=== PATIENT | female | born 1975 | race Caucasian/White ===

== ENCOUNTER 2016-10-02 07:27 | Inpatient (IN) | payer MEDICAID ==
[2016-10-02] MEDS ORDERED: Ondansetron 4 MG/2 ML SDV IVPUSH ONE ×3 (08:11→10:04)
[2016-10-02] MEDS ORDERED: Famotidine 20 MG/2 ML SDV IVPUSH ONE (08:13)
[2016-10-02] MEDS ORDERED: Sodium Chloride 0.9% 1,000 ML IV SCH (08:15)
--- NOTE | 2016-10-02 08:30 | EDM.PDOC ---
ED HPI GI/ABDOMINAL - General Chief Complaint: Gastrointestinal Problem Stated Complaint: VOMITING/DIARRHEA Time Seen by Provider: 10/02/16 07:40 Source of Information: Reports: Patient, Family (spouse) - History of Present Illness INITIAL COMMENTS - FREE TEXT/NARRATIVE: 41 year old female comes in with severe nausea, vomiting, diarrhea. Has had previous nausea off and on, occasional diarrhea. This all became much worse yesterday with severe nausea, repetitive vomiting and watery diarrhea. Has not been able to drink or retain fluids. Mouth is getting very dry. Dizzy and lightheaded standing. 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 about 6 months ago. Last chemo was just 2 days ago. Had been having some intermitent fever and chills, started on flagyl and cipro 2 days ago. states it was after that the severe vomiting and diarrhea started. No fever for the last 24 hrs. No coughing, chest pain or difficulty breathing. - Related Data Allergies/ADRs: Allergies Allergy/AdvReac Type Severity Reaction Status Date / Time paclitaxel Allergy Anaphylactic Verified 10/02/16 07:43 Shock Home Meds: Home Meds ALPRAZolam [Alprazolam] 0.5 mg PO Q4HR PRN 08/22/16 [History] Ferrous Sulfate [Iron] 1 tab PO DAILY 08/22/16 [History] Gabapentin [Neurontin] 300 mg PO TID 08/22/16 [History] Ibuprofen 400 mg PO Q6HR PRN 08/22/16 [History] Ibuprofen/Diphenhydramine Cit [Advil Pm Caplet] 1 tab PO DAILY PRN 08/22/16 [ History] Morphine [MS Contin] 1 tab PO Q12HR 08/22/16 [History] Naproxen Sodium [Aleve] 1 tab PO Q12HR PRN 08/22/16 [History] Ondansetron HCl [Zofran] 8 mg PO Q6HR PRN 08/22/16 [History] Promethazine [Phenergan] 0.5 mg TOP Q6HR PRN 08/22/16 [History] diphenhydrAMINE [Benadryl] 25 mg PO Q6HR PRN 08/22/16 [History] Ciprofloxacin HCl [Cipro] 250 mg PO BID 10/02/16 [History] HYDROmorphone [Dilaudid] 4 mg PO Q3H PRN MDD 8 tabs/day 10/02/16 [History] metroNIDAZOLE [Flagyl] 500 mg PO Q8H 10/02/16 [History] Past Medical History Respiratory History: Reports: Other (see below) Other Respiratory History: bronchoscopy [employer] History: Reports: Neurological History: Reports: Migraines Psychiatric History: Reports: Anxiety Hematologic History: Reports: Anemia, Other (see below) Other Hematologic History: chemotherapy patient Immunologic History: Reports: Immunosuppression, Other (see below) Other Immunologic History: chemo patient Oncologic (Cancer) History: Reports: Squamous cell carcinoma - Past Surgical History GI Surgical History: Reports: Other (see below) Other GI Surgeries/Procedures: colonoscopy Oncologic Surgical History: Reports: Other (see below) Other Oncologic Surgeries/Procedures: biopsy, currently being treated with chemo , no radiation Social & Family History - Family History Family Medical History: Noncontributory - Tobacco Use Smoking Status *Q: Former Smoker - Caffeine Use Caffeine Use: Reports: None - Recreational Drug Use Recreational Drug Use: No ED ROS GENERAL - Review of Systems Review Of Systems: See Below Constitutional: Reports: fever (several days ago, gone) HEENT: Reports: Other (mouth is very dry). Denies: Sinus problem, Throat pain Respiratory: Denies: shortness of breath, wheezing, pleuritic chest pain Cardiovascular: Denies: Chest pain GI/Abdominal: Reports: Abdominal pain (intermitent cramping), Diarrhea ( frequent watery), Vomiting (frequent repetitive, now mostly dry heaves) Musculoskeletal: Reports: back pain (low back, worse with any type of motion) Skin: Denies: rash Neurological: Reports: dizziness, numbness, tingling (R foot and distal leg), weakness (generalized). Denies: headache ED EXAM, GI/ABD - Physical Exam Exam: See Below Exam Limited By: No limitations General Appearance: alert, moderate distress Eyes: bilateral: normal appearance Throat/Mouth: Other (oral mucosa is dry). No: Inflammation Head: No: facial swelling Neck: normal inspection, supple Respiratory/Chest: no respiratory distress, lungs clear, normal breath sounds Cardiovascular: regular rate, rhythm GI/Abdominal: tenderness (mid and upper mid abdomen, right lower quadrant). No : guarding Back Exam: CVA tenderness (R) (mild). No: CVA tenderness (L) Extremities: No: pedal edema, leg pain Neurological: alert, oriented, no motor/sensory deficits Skin Exam: Warm, Dry, Normal color Course - Vital Signs Last Recorded V/S: Last Vital Signs Temp 98.3 F 10/02/16 10:00 Pulse 64 10/02/16 10:00 Resp 18 10/02/16 10:00 BP 124/85 10/02/16 10:00 Pulse Ox 98 10/02/16 10:00 - Orders/Labs/Meds Orders: Active Orders 24 hr Category Date Time Status Admission Status [Patient Status] [ADT] Routine ADT 10/02/16 12:15 Active CULTURE STOOL + SHIGATOX [RM] Stat Lab 10/02/16 08:46 Ordered Potassium Chloride [KCl 10 MEQ in Water 100 ML] 10 meq Med 10/02/16 11:04 Active Premix Bag 1 bag IV ASDIRECTED Sodium Chloride 0.9% [Normal Saline] 1,000 ml Med 10/02/16 08:15 Active IV ONETIME Medication Orders Sodium Chloride (Normal Saline) 1,000 mls @ 999 mls/hr IV ONETIME DOLORES Last Admin: 10/02/16 08:25 Dose: 999 mls/hr Potassium Chloride 10 meq/ (Premix) 100 mls @ 50 mls/hr IV ASDIRECTED ONE Stop: 10/02/16 13:03 Last Admin: 10/02/16 11:10 Dose: 50 mls/hr Labs: Laboratory Tests 10/02/16 10/02/16 10/02/16 Range/Units 08:11 08:15 08:30 WBC 5.99 (3.98-10.04) K/mm3 RBC 3.13 L (3.98-5.22) M/mm3 Hgb 10.1 L (11.2-15.7) gm/L Hct 30.1 L (34.1-44.9) % MCV 96.2 H (79.4-94.8) fl MCH 32.3 H (25.6-32.2) pg MCHC 33.6 (32.2-35.5) g/dl RDW Std Deviation 58.3 H (36.4-46.3) fL Plt Count 319 (182-369) K/mm3 MPV 8.2 L (9.4-12.3) fl Neut % (Auto) 90.7 H (34.0-71.1) % Lymph % (Auto) 4.3 L (19.3-51.7) % Lipscomb % (Auto) 4.5 L (4.7-12.5) % Eos % (Auto) 0.3 L (0.7-5.8) Baso % (Auto) 0.2 (0.1-1.2) % Neut # 5.43 (1.56-6.13) K/mm3 Lymph # 0.26 L (1.18-3.74) K/mm3 Lipscomb # 0.27 (0.24-0.36) K/mm3 Eos # 0.02 L (0.04-0.36) K/mm3 Baso # 0.01 (0.01-0.08) K/mm3 Manual Slide Review Abnormal smear Sodium 141 (136-145) mEq/L Potassium 3.1 L (3.5-5.1) mEq/L Chloride 105 (98-107) mEq/L Carbon Dioxide 26 (21-32) mEq/L Anion Gap 13.1 (5-15) BUN 14 (7-18) mg/dL Creatinine 0.8 (0.55-1.02) mg/dL Est Cr Clr Drug Dosing TNP Estimated GFR (MDRD) > 60 (>60) mL/min BUN/Creatinine Ratio 17.5 (14-18) Glucose 96 (74-106) mg/dL Lactic Acid 1.4 (0.4-2.0) mmol/L Calcium 9.1 (8.5-10.1) mg/dL Total Bilirubin 0.3 (0.2-1.0) mg/dL AST 52 H (15-37) U/L ALT 29 (14-59) U/L Alkaline Phosphatase 50 (46-116) U/L Total Protein 6.7 (6.4-8.2) g/dl Albumin 3.3 L (3.4-5.0) g/dl Globulin 3.4 gm/dL Albumin/Globulin Ratio 1.0 (1-2) C.difficile [id number]-[id number] C. difficile Tox (PCR) 10/02/16 Range/Units 08:30 WBC (3.98-10.04) K/mm3 RBC (3.98-5.22) M/mm3 Hgb (11.2-15.7) gm/L Hct (34.1-44.9) % MCV (79.4-94.8) fl MCH (25.6-32.2) pg MCHC (32.2-35.5) g/dl RDW Std Deviation (36.4-46.3) fL Plt Count (182-369) K/mm3 MPV (9.4-12.3) fl Neut % (Auto) (34.0-71.1) % Lymph % (Auto) (19.3-51.7) % Lipscomb % (Auto) (4.7-12.5) % Eos % (Auto) (0.7-5.8) Baso % (Auto) (0.1-1.2) % Neut # (1.56-6.13) K/mm3 Lymph # (1.18-3.74) K/mm3 Lipscomb # (0.24-0.36) K/mm3 Eos # (0.04-0.36) K/mm3 Baso # (0.01-0.08) K/mm3 Manual Slide Review Sodium (136-145) mEq/L Potassium (3.5-5.1) mEq/L Chloride (98-107) mEq/L Carbon Dioxide (21-32) mEq/L Anion Gap (5-15) BUN (7-18) mg/dL Creatinine (0.55-1.02) mg/dL Est Cr Clr Drug Dosing Estimated GFR (MDRD) (>60) mL/min BUN/Creatinine Ratio (14-18) Glucose (74-106) mg/dL Lactic Acid (0.4-2.0) mmol/L Calcium (8.5-10.1) mg/dL Total Bilirubin (0.2-1.0) mg/dL AST (15-37) U/L ALT (14-59) U/L Alkaline Phosphatase (46-116) U/L Total Protein (6.4-8.2) g/dl Albumin (3.4-5.0) g/dl Globulin gm/dL Albumin/Globulin Ratio (1-2) C.difficile [id number] Presumptive negative C. difficile Tox (PCR) Negative Meds: Medications Generic Name Dose Route Start Last Admin Trade Name Freq PRN Reason Stop Dose Admin Sodium Chloride 1,000 mls @ 999 mls/hr 10/02/16 08:15 10/02/16 08:25 Normal Saline IV 999 mls/hr ONETIME DOLORES Administration Potassium Chloride 10 meq/ 100 mls @ 50 mls/hr 10/02/16 11:04 10/02/16 11:10 Premix IV 10/02/16 13:03 50 mls/hr ASDIRECTED ONE Administration Discontinued Medications Generic Name Dose Route Start Last Admin Trade Name Robel PRN Reason Stop Dose Admin Famotidine 20 mg 10/02/16 08:13 10/02/16 08:25 Pepcid IVPUSH 10/02/16 08:14 20 mg ONETIME ONE Administration Hydromorphone HCl 1 mg 10/02/16 09:08 10/02/16 09:18 Dilaudid IVPUSH 10/02/16 09:09 1 mg ONETIME ONE Administration Potassium Chloride 10 meq/ 100 mls @ 50 mls/hr 10/02/16 09:22 10/02/16 09:32 Premix IV 10/02/16 11:21 50 mls/hr ASDIRECTED ONE Administration Sodium Chloride 1,000 mls @ 500 mls/hr 10/02/16 10:01 10/02/16 10:10 Normal Saline IV 10/02/16 12:00 500 mls/hr ONETIME ONE Administration Metoclopramide HCl 5 mg 10/02/16 09:54 10/02/16 10:11 Reglan IVPUSH 10/02/16 09:55 Not Given ONETIME ONE Ondansetron HCl 4 mg 10/02/16 08:11 10/02/16 08:25 Zofran IVPUSH 10/02/16 08:12 4 mg ONETIME ONE Administration Ondansetron HCl 4 mg 10/02/16 10:04 10/02/16 10:10 Zofran IVPUSH 10/02/16 10:05 4 mg ONETIME ONE Administration Ondansetron HCl 4 mg 10/02/16 10:04 10/02/16 10:10 Zofran IVPUSH 10/02/16 10:05 Not Given ONETIME ONE - Re-Assessments/Exams Free Text/Narrative Re-Assessment/Exam: 10/02/16 10: 40. Have given 1 L of IV fluid, IV Zofran, IV Pepcid. She still is quite nauseated. We did recently do a dose of 1 mg Dilaudid IV to help her with her low back discomfort. Note she has not been able to take her pain meds today. He became more nauseated after that. Zofran will be repeated. Potassium has come back low at 3.1 so will give 10 mEq potassium IV. We'll plan to give a second liter of fluid over the next couple of hours. 12:00. She's had most of the second liter of IV fluid. She has had a second 4 mg IV Zofran. She still feels very nauseated, had another episode of vomiting. Is very tearful, does not feel well enough to go home. I have visited with her Oncologist Dr. Henderson who does agree to stopping oral Flagyl and Cipro. Of note her white blood count is not elevated and she is not febrile. We will admit her observation status for further treatment. Departure - Departure Time of Disposition: 12:05 Disposition: Admitted As Inpatient 65 Condition: serious Clinical Impression: Hypokalemia, Chemotherapy induced nausea and vomiting Back pain Qualifiers: Back pain location: low back pain Chronicity: acute Back pain laterality: midline Sciatica presence: without sciatica Qualified Code(s): M54.5 - Low back pain Forms: ED Department Discharge ED Communication - Discussed Case With (1) Discussed Case With (1): Admitting Provider (Dr. Fuentes, decision to admit at about 12:05) - My Orders Last 24 Hours: My Active Orders 10/02/16 08:15 Sodium Chloride 0.9% [Normal Saline] 1,000 ml IV ONETIME 10/02/16 08:46 CULTURE STOOL + SHIGATOX [RM] Stat 10/02/16 11:04 Potassium Chloride [KCl 10 MEQ in Water 100 ML] 10 meq Premix Bag 1 bag IV ASDIRECTED 10/02/16 12:15 Admission Status [Patient Status] [ADT] Routine - Assessment/Plan Last 24 Hours: My Active Orders 10/02/16 08:15 Sodium Chloride 0.9% [Normal Saline] 1,000 ml IV ONETIME 10/02/16 08:46 CULTURE STOOL + SHIGATOX [RM] Stat 10/02/16 11:04 Potassium Chloride [KCl 10 MEQ in Water 100 ML] 10 meq Premix Bag 1 bag IV ASDIRECTED 10/02/16 12:15 Admission Status [Patient Status] [ADT] Routine
[2016-10-02] MEDS ORDERED: HYDROmorphone 1 MG/ML Syringe IVPUSH ONE (09:08)
[2016-10-02] MEDS ORDERED: Potassium Chloride 10 MEQ in Premix Bag 1 BAG IV ONE ×2 (09:22→11:04)
[2016-10-02] MEDS ORDERED: Metoclopramide 10 MG/2 ML SDV IVPUSH ONE (09:54)
[2016-10-02] MEDS ORDERED: Sodium Chloride 0.9% 1,000 ML IV ONE (10:01)
[2016-10-02] MEDS ORDERED: Prochlorperazine 10 MG/2 ML SDV IVPUSH PRN (14:10)
[2016-10-02] MEDS ORDERED: HYDROmorphone 1 MG/ML Syringe IVPUSH PRN (14:11)
[2016-10-02] MEDS ORDERED: fentaNYL 25 MCG/HR Transdermal Patch TRDERM SCH (14:15)
[2016-10-02] MEDS ORDERED: Ondansetron 4 MG/2 ML SDV IV PRN (14:20)
[2016-10-02] MEDS ORDERED: Acetaminophen Soln 650 MG/20.3 ML UD Cup PO PRN (14:21)
[2016-10-02] MEDS ORDERED: Magnesium Sulfate/Water 2 GM in Premix Bag 1 BAG IV ONE (14:21)
[2016-10-02] MEDS ORDERED: Temazepam 15 MG Cap PO PRN (14:31)
[2016-10-02] MEDS: Pantoprazole 40 MG Vial IVPUSH SCH (15:14)
[2016-10-02] MEDS: Gabapentin 300 MG Cap PO SCH ×2 (15:14→20:49)
[2016-10-02] MEDS: Sodium Chloride 0.9% with KCl 1,000 ML IV SCH ×2 (15:27→19:30)
--- NOTE | 2016-10-02 15:43 | CR ---
Chest: Portable view of the chest was obtained. Comparison: No previous chest x-ray. Right-sided infusion port is seen. Tip lies within the superior vena cava. Lungs are clear. Heart size and mediastinum are normal. Bony structures are grossly intact. Impression: 1. Right-sided infusion catheter as noted above. 2. Nothing acute is appreciated on portable chest x-ray. Diagnostic code #2
--- NOTE | 2016-10-02 18:07 | PCM.HP ---
H&P History of Present Illness - General Date of Service: 10/02/16 Admit Problem/Dx: Admission Diagnosis/Problem Admission Diagnosis/Problem Vomiting Source of Information: Patient, Provider History Limitations: Reports: No limitations - History of Present Illness Initial Comments - Free Text/Narative: 41 year old female s/p CTX for squamous cell carcinoma, primary is unknown at this time. Sees an oncologist in [place], has not been seen by a PATHOLOGY SECRETARY/TRANSCRIPTIONIST oncologist. Apparently has several days of a possible febrile illness and was empirically started on Flagyl as well as Cirpro. The patient subsequently developed nausea/vomiting and has had watery stools with abdominal cramping. The possibility of sick contacts is unknown. There has been no blood per rectum ; however significant lightheadedness has occurred. Onset of Symptoms: Reports: sudden Symptom Onset Date: 09/30/16 Duration of Symptoms: Reports: Day(s):, Getting worse Location: Reports: abdomen Severity: moderate Improves with: Reports: None Worsens with: Reports: None Associated Symptoms: Reports: loss of appetite, malaise, nausea/vomiting, weakness stomach, bilateral side Pain Score (Numeric/FACES): 8 - Related Data Allergies/Adverse Reactions: Allergies Allergy/AdvReac Type Severity Reaction Status Date / Time paclitaxel Allergy Anaphylactic Verified 10/02/16 07:43 Shock Home Medications: Home Meds ALPRAZolam [Alprazolam] 0.5 mg PO Q4HR PRN 08/22/16 [History] Ferrous Sulfate [Iron] 1 tab PO DAILY 08/22/16 [History] Gabapentin [Neurontin] 300 mg PO TID 08/22/16 [History] Ibuprofen 400 mg PO Q6HR PRN 08/22/16 [History] Ibuprofen/Diphenhydramine Cit [Advil Pm Caplet] 1 tab PO DAILY PRN 08/22/16 [ History] Morphine [MS Contin] 1 tab PO Q12HR 08/22/16 [History] Naproxen Sodium [Aleve] 1 tab PO Q12HR PRN 08/22/16 [History] Ondansetron HCl [Zofran] 8 mg PO Q6HR PRN 08/22/16 [History] Promethazine [Phenergan] 0.5 mg TOP Q6HR PRN 08/22/16 [History] diphenhydrAMINE [Benadryl] 25 mg PO Q6HR PRN 08/22/16 [History] Ciprofloxacin HCl [Cipro] 250 mg PO BID 10/02/16 [History] HYDROmorphone [Dilaudid] 4 mg PO Q3H PRN MDD 8 tabs/day 10/02/16 [History] metroNIDAZOLE [Flagyl] 500 mg PO Q8H 10/02/16 [History] Past Medical History HEENT History: Reports: Impaired vision Respiratory History: Reports: Other (see below) Other Respiratory History: bronchoscopy [employer] History: Reports: Neurological History: Reports: Migraines Psychiatric History: Reports: Anxiety Hematologic History: Reports: Anemia, Other (see below) Other Hematologic History: chemotherapy patient Immunologic History: Reports: Immunosuppression, Other (see below) Other Immunologic History: chemo patient Oncologic (Cancer) History: Reports: Squamous cell carcinoma - Infectious Disease History Infectious Disease History: Reports: C-difficile - Past Surgical History GI Surgical History: Reports: Other (see below) Other GI Surgeries/Procedures: colonoscopy Oncologic Surgical History: Reports: Other (see below) Other Oncologic Surgeries/Procedures: biopsy, currently being treated with chemo , no radiation Social & Family History - Family History Family Medical History: Noncontributory Cardiac: Reports: VT Other Cardiac Family History: mother of [place] Endocrine/Metabolic: Reports: Diabetes, type II Other Endocrine/Metabolic Family History: mother and father Oncologic: Reports: Skin Other Oncologic Family History: father - Tobacco Use Smoking Status *Q: Former Smoker - Caffeine Use Caffeine Use: Reports: Tea - Recreational Drug Use Recreational Drug Use: No H&P Review of Systems - Review of Systems: Review Of Systems: See Below General: Reports: malaise, weakness, fatigue, decreased appetite, weight loss HEENT: Reports: no symptoms Pulmonary: Reports: no symptoms Cardiovascular: Reports: lightheadedness Gastrointestinal: Reports: Diarrhea (watery stool), Decreased appetite Genitourinary: Reports: no symptoms Musculoskeletal: Reports: no symptoms Skin: Reports: no symptoms Psychiatric: Reports: no symptoms Neurological: Reports: no symptoms Hematologic/Lymphatic: Reports: no symptoms Immunologic: Reports: no symptoms Exam - Exam Exam: See Below - Vital Signs Vital Signs: Last Vital Signs Temp 36.9 C 10/02/16 17:15 Pulse 60 10/02/16 17:15 Resp 18 10/02/16 17:15 BP 133/83 10/02/16 17:15 Pulse Ox 100 10/02/16 17:15 Weight: 56.2 kg - Exam Quality Assessment: DVT prophylaxis General: alert, oriented, mild distress HEENT: Conjunctiva clear, EACs clear, EOMI, Nares patent, Normal nasal septum, Posterior pharynx clear, Pupils equal, Pupils reactive Neck: supple, trachea midline Lungs: Normal respiratory effort, Decreased breath sounds Cardiovascular: regular rate, regular rhythm Abdomen: normal bowel sounds, soft (Female) Exam: Deferred Rectal (Female) Exam: Deferred Back Exam: normal inspection Extremities: normal inspection, normal pulses Skin: warm Neurological: cranial nerves intact Neuro Extensive - Mental Status: alert, oriented x3, normal mood/affect, normal cognition, memory intact Neuro Extensive - Motor, Sensory, Reflexes: CN II-XII intact Psychiatric: alert, normal affect, normal mood - Patient Data Result Diagrams: 10/03/16 05:03 10/03/16 05:00 Obey Results last 24 hrs: Microbiology 10/02/16 17:00 Influenza Type A Antigen Screen - Final Nasal, Left NEGATIVE INFLUENZA A VIRUS AG Influenza Type B Antigen Screen - Final NEGATIVE INFLUENZA B VIRUS AG *Q Meaningful Use (ADM) - VTE *Q VTE Criteria *Q: - Stroke *Q Stroke Criteria *Q: - AMI *Q AMI Criteria *Q: - Problem List (1) Back pain SNOMED Code(s): 636388859 ICD Code: M54.9 - DORSALGIA, UNSPECIFIED Status: Acute Current Visit: Yes Qualifiers: Back pain location: low back pain Chronicity: acute Back pain laterality : midline Sciatica presence: without sciatica Qualified Code(s): M54.5 - Low back pain (2) Chemotherapy induced nausea and vomiting SNOMED Code(s): 513525021 ICD Code: R11.2 - NAUSEA WITH VOMITING, UNSPECIFIED; T45.1X5A - ADVERSE EFFECT OF ANTINEOPLASTIC AND IMMUNOSUP DRUGS, INIT Status: Acute Current Visit: Yes (3) Hypokalemia SNOMED Code(s): 99061925 ICD Code: E87.6 - HYPOKALEMIA Status: Acute Current Visit: Yes (4) Abdominal pain SNOMED Code(s): 97984103 ICD Code: R10.9 - UNSPECIFIED ABDOMINAL PAIN Status: Acute Current Visit : No Qualifiers: Abdominal location: right lower quadrant Qualified Code(s): R10.31 - Right lower quadrant pain (5) Lesion of liver SNOMED Code(s): 385013190 ICD Code: K76.9 - LIVER DISEASE, UNSPECIFIED Status: Acute Current Visit : No (6) Squamous cell carcinoma SNOMED Code(s): 735875637 ICD Code: C80.1 - MALIGNANT (PRIMARY) NEOPLASM, UNSPECIFIED Status: Acute Current Visit: No Problem List Initiated/Reviewed/Updated: Yes Orders Last 24hrs: Active Orders 24 hr Category Date Time Status Activity as Tolerated [RC] .Routine Care 10/02/16 18:01 Ordered Antiembolic Devices [RC] QSHIFT Care 10/02/16 14:25 Active Vital Signs [RC] 12,16,20,00,04,08 Care 10/02/16 14:09 Active Consult to Case Management [CONS] Routine Cons 10/02/16 15:23 Active Nothing per Oral Now Diet [DIET] Diet 10/02/16 Dinner Active BASIC METABOLIC PANEL,BMP [CHEM] DAILY Lab 10/03/16 05:00 Ordered BASIC METABOLIC PANEL,BMP [CHEM] DAILY Lab 10/04/16 05:00 Ordered CBC WITH AUTO DIFF [HEME] DAILY Lab 10/03/16 05:00 Ordered CBC WITH AUTO DIFF [HEME] DAILY Lab 10/04/16 05:00 Ordered CRP [C-REACTIVE PROTEIN] [CHEM] Routine Lab 10/02/16 18:00 Ordered D Dimer [D-DIMER QUANTITATIVE] [COAG] Routine Lab 10/02/16 18:00 Ordered HCG QUALITATIVE,URINE [URCHEM] Routine Lab 10/02/16 14:28 Uncollected INFLUENZA A+B AG SCREEN [RM] Routine Lab 10/03/16 05:00 Uncollected MAGNESIUM [CHEM] DAILY Lab 10/03/16 05:00 Ordered MAGNESIUM [CHEM] DAILY Lab 10/04/16 05:00 Ordered MYCOPLASMA PNEUMONIAE IGM AB [CHEM] Routine Lab 10/02/16 18:00 Ordered ROTAVIRUS DIRECT ANTIGEN STOOL [OP] Routine Lab 10/02/16 16:25 Received URINALYSIS W/MICROSCOPIC [UA W/MICROSCOPIC] [URIN] Lab 10/02/16 14:29 Uncollected Routine Acetaminophen [Tylenol] Med 10/02/16 14:21 Active 650 mg PO Q6H PRN Enoxaparin [Lovenox] Med 10/03/16 09:00 Active 40 mg SUBCUT DAILY Gabapentin [Neurontin] Med 10/02/16 15:00 Active 300 mg PO TID HYDROmorphone [Dilaudid] Med 10/02/16 14:11 Active 2 mg IVPUSH Q4H PRN LORazepam [Ativan] Med 10/02/16 14:34 Active 1 mg IVPUSH Q8H PRN Ondansetron [Zofran] Med 10/02/16 14:20 Active 8 mg IV Q8H PRN Pantoprazole [Protonix IV] Med 10/02/16 14:15 Active 40 mg IVPUSH Q12H Prochlorperazine [Compazine] Med 10/02/16 18:00 Active 5 mg IVPUSH Q6H Prochlorperazine [Compazine] Med 10/03/16 18:00 Active 5 mg IVPUSH Q6H PRN Sodium Chloride 0.9% with KCl [Normal Saline with 40 Med 10/02/16 14:30 Active mEq KCl] 1,000 ml IV ASDIRECTED Temazepam [Restoril] Med 10/02/16 14:31 Active 15 mg PO BEDTIME PRN fentaNYL [Duragesic] Med 10/02/16 14:15 Active 25 mcg TRDERM Q72H ERIKA Hose [Antiembolic Hose] [OM.PC] Routine Oth 10/02/16 14:24 Ordered Resuscitation Status Routine Resus Stat 10/02/16 17:38 Ordered Medication Orders Acetaminophen (Tylenol) 650 mg PO Q6H PRN PRN Reason: Fever Enoxaparin Sodium (Lovenox) 40 mg SUBCUT DAILY [facility] Fentanyl (Duragesic) 25 mcg TRDERM Q72H [facility] Last Admin: 10/02/16 15:12 Dose: 25 mcg Gabapentin (Neurontin) 300 mg PO TID [facility] Last Admin: 10/02/16 15:14 Dose: Not Given Hydromorphone HCl (Dilaudid) 2 mg IVPUSH Q4H PRN PRN Reason: Pain (moderate 4-6) Sodium Chloride (Normal Saline) 1,000 mls @ 999 mls/hr IV ONETIME [facility] Last Admin: 10/02/16 08:25 Dose: 999 mls/hr Potassium Chloride/Sodium Chloride (Normal Saline With 40 Meq Kcl) 1,000 mls @ 150 mls/hr IV ASDIRECTED DOLORES Last Infusion: 10/02/16 16:07 Dose: 150 mls/hr Admin: 10/02/16 15:27 Dose: 999 mls/hr Lorazepam (Ativan) 1 mg IVPUSH Q8H PRN PRN Reason: Anxiety Ondansetron HCl (Zofran) 8 mg IV Q8H PRN PRN Reason: Nausea/Vomiting Last Admin: 10/02/16 15:28 Dose: 8 mg Pantoprazole Sodium (Protonix Iv) 40 mg IVPUSH Q12H [facility] Last Admin: 10/02/16 15:14 Dose: 40 mg Prochlorperazine Edisylate (Compazine) 5 mg IVPUSH Q6H [facility] Stop: 10/03/16 12:01 Prochlorperazine Edisylate (Compazine) 5 mg IVPUSH Q6H PRN PRN Reason: Nausea/Vomiting Temazepam (Restoril) 15 mg PO BEDTIME PRN PRN Reason: Insomnia Assessment/Plan Comment:: Impression: Febrile illness as OP empirically treated with Cipro/Flagyl Post CTX nausea and vomiting Frequent loose stools, watery content without blood or mucous History of cervical cancer History of migraine Plan: IVF Replace electrolytes DC empiric ATB Stool cultures are pending. Query contact isolation Pain management Infectious work up for treatable cause Anti-emetics, start with ATC as well as prn. '
[2016-10-02] MEDS: Prochlorperazine 10 MG/2 ML SDV IVPUSH SCH ×2 (18:13→23:38)
[2016-10-02] MEDS: LORazepam 2 MG/ML MDV IVPUSH PRN (20:50)
[2016-10-02] MEDS ORDERED: Enoxaparin 60 MG/0.6 ML Syringe SUBCUT SCH (21:00)
[2016-10-03] MEDS ORDERED: Sodium Chloride 0.9% 50 ML ONE (01:33)
[2016-10-03] MEDS ORDERED: Ondansetron 8 MG in Sodium Chloride 0.9% 50 ML IV PRN (01:37)
[2016-10-03] MEDS: Pantoprazole 40 MG Vial IVPUSH SCH ×2 (01:43→14:57)
[2016-10-03] MEDS: Sodium Chloride 0.9% with KCl 1,000 ML IV SCH ×2 (01:50→08:24)
[2016-10-03] MEDS: Prochlorperazine 10 MG/2 ML SDV IVPUSH SCH ×2 (05:19→11:48)
[2016-10-03] MEDS: LORazepam 2 MG/ML MDV IVPUSH PRN (08:25)
[2016-10-03] MEDS: Morphine 15 MG Tab.ER PO SCH ×3 (08:33→20:35)
[2016-10-03] MEDS: Gabapentin 300 MG Cap PO SCH ×3 (08:33→21:05)
[2016-10-03] MEDS ORDERED: Enoxaparin 40 MG/0.4 ML Syringe SUBCUT SCH (09:00)
[2016-10-03] MEDS ORDERED: Enoxaparin 60 MG/0.6 ML Syringe SUBCUT SCH (09:00)
[2016-10-03] MEDS ORDERED: Sodium Chloride 0.9% 10 ML Syringe FLUSH PRN (09:23)
[2016-10-03] MEDS ORDERED: Iopamidol 755 Mg/ML 100 ML Bottle IVPUSH ONE (09:23)
[2016-10-03] MEDS ORDERED: Iopamidol 755 MG/ML 50 ML Bottle IVPUSH ONE (09:23)
--- NOTE | 2016-10-03 09:27 | US ---
Bilateral lower extremity deep venous ultrasound: Duplex and color flow imaging was obtained of the right and left common femoral, superficial femoral, popliteal, posterior tibial and peroneal veins. Normal phasic flow, augmentation and compression is seen. Impression: 1. No evidence of deep venous thrombosis is seen within either the right or left lower extremities. Diagnostic code #1
[2016-10-03] MEDS ORDERED: Sodium Chloride 0.9% 100 ML IV SCH (09:30)
--- NOTE | 2016-10-03 10:26 | CT ---
CT chest Technique: Multiple axial sections through the chest were obtained. Intravenous contrast was utilized. Study has been performed as a pulmonary angiogram protocol. Findings: Pulmonary arteries are well-opacified. No filling defects are seen to indicate pulmonary embolism. Small right-sided pleural effusion is seen. Small amount of ascites noted around the liver and around the spleen. No pericardial thickening is seen. Mild coronary artery calcification is noted. Mediastinum and hilar regions show no adenopathy or mass. No axillary adenopathy is seen. Lungs otherwise are clear. Bone window settings were reviewed which show nothing acute. Right-sided infusion port is seen. Impression: 1. Small right-sided pleural effusion. Ascites noted around the liver and spleen within the abdomen. 2. No findings of pulmonary embolism are seen. No additional abnormality is identified on CT study of the chest. Diagnostic code #3
[2016-10-03] MEDS ORDERED: Scopolamine 1.5 MG Transdermal Patch TOP SCH (12:00)
--- NOTE | 2016-10-03 20:15 | PCM.PN ---
- General Info Date of Service: 10/03/16 Functional Status: Reports: urinating - Review of Systems General: Reports: weakness, malaise HEENT: Reports: no symptoms Pulmonary: Reports: no symptoms Cardiovascular: Reports: no symptoms Gastrointestinal: Reports: Abdominal pain, Decreased appetite, Nausea, Vomiting Genitourinary: Reports: no symptoms Musculoskeletal: Reports: no symptoms Skin: Reports: no symptoms Neurological: Reports: no symptoms Psychiatric: Reports: no symptoms - Patient Data Vitals - most recent: Last Vital Signs Temp 37.1 C 10/03/16 15:59 Pulse 88 10/03/16 15:59 Resp 16 10/03/16 15:59 BP 113/68 10/03/16 15:59 Pulse Ox 96 10/03/16 15:59 Weight - most recent: 56.2 kg I&O - last 24 hours: Intake & Output 10/03/16 10/03/16 10/03/16 06:59 14:59 22:59 Intake Total 1473 Output Total 575 Balance 898 Lab Results last 24 hrs: Laboratory Results - last 24 hr 10/03/16 Range/Units 14:27 D-Dimer, Quantitative 9.12 H (0.19-0.59) mg/L Med Orders - Current: Current Medications Acetaminophen (Tylenol) 650 mg PO Q6H PRN PRN Reason: Fever Acetaminophen/Hydrocodone Bitart ([place] 325-10 Mg) 1 tab PO Q4H PRN PRN Reason: Pain (moderate 4-6) Enoxaparin Sodium (Lovenox) 40 mg SUBCUT DAILY ON LICENSE OF [facility] Fentanyl (Duragesic) 25 mcg TRDERM Q72H ON LICENSE OF [facility] Last Admin: 10/02/16 15:12 Dose: 25 mcg Gabapentin (Neurontin) 300 mg PO TID ON LICENSE OF [facility] Last Admin: 10/03/16 14:59 Dose: Not Given Hydromorphone HCl (Dilaudid) 2 mg IVPUSH Q4H PRN PRN Reason: Pain (moderate 4-6) Ondansetron HCl 8 mg/ Sodium (Chloride) 54 mls @ 108 mls/hr IV Q8H PRN PRN Reason: NAUSEA/VOMITING Last Admin: 10/03/16 01:43 Dose: 108 mls/hr Lorazepam (Ativan) 1 mg IVPUSH Q8H PRN PRN Reason: Anxiety Last Admin: 10/03/16 08:25 Dose: 1 mg Miscellaneous Information (Remove Patch) 0 ea TRDERM Q72H ON LICENSE OF [facility] Morphine Sulfate (Ms Contin) 30 mg PO Q12HR ON LICENSE OF [facility] Last Admin: 10/03/16 19:01 Dose: 30 mg Pantoprazole Sodium (Protonix Iv) 40 mg IVPUSH Q12H ON LICENSE OF [facility] Last Admin: 10/03/16 14:57 Dose: 40 mg Prochlorperazine Edisylate (Compazine) 5 mg IVPUSH Q6H PRN PRN Reason: Nausea/Vomiting Scopolamine (Transderm-Scop) 1.5 mg TOP Q72H ON LICENSE OF [facility] Last Admin: 10/03/16 12:15 Dose: 1.5 mg Sodium Chloride (Saline Flush) 10 ml FLUSH ONETIME PRN PRN Reason: IV FLUSH Last Admin: 10/03/16 09:47 Dose: 10 ml Temazepam (Restoril) 15 mg PO BEDTIME PRN PRN Reason: Insomnia Discontinued Medications Enoxaparin Sodium (Lovenox) 40 mg SUBCUT DAILY ON LICENSE OF [facility] Enoxaparin Sodium (Lovenox) 56.2 mg SUBCUT Q12HR ON LICENSE OF [facility] Last Admin: 10/02/16 20:51 Dose: 56.2 mg Enoxaparin Sodium (Lovenox) 56 mg SUBCUT Q12HR ON LICENSE OF [facility] Last Admin: 10/03/16 08:26 Dose: 56 mg Famotidine (Pepcid) 20 mg IVPUSH ONETIME ONE Stop: 10/02/16 08:14 Last Admin: 10/02/16 08:25 Dose: 20 mg Hydromorphone HCl (Dilaudid) 1 mg IVPUSH ONETIME ONE Stop: 10/02/16 09:09 Last Admin: 10/02/16 09:18 Dose: 1 mg Sodium Chloride (Normal Saline) 1,000 mls @ 999 mls/hr IV ONETIME [facility] Last Admin: 10/02/16 08:25 Dose: 999 mls/hr Potassium Chloride 10 meq/ (Premix) 100 mls @ 50 mls/hr IV ASDIRECTED ONE Stop: 10/02/16 11:21 Last Admin: 10/02/16 09:32 Dose: 50 mls/hr Sodium Chloride (Normal Saline) 1,000 mls @ 500 mls/hr IV ONETIME ONE Stop: 10/02/16 12:00 Last Admin: 10/02/16 10:10 Dose: 500 mls/hr Potassium Chloride 10 meq/ (Premix) 100 mls @ 50 mls/hr IV ASDIRECTED ONE Stop: 10/02/16 13:03 Last Admin: 10/02/16 11:10 Dose: 50 mls/hr Magnesium Sulfate 2 gm/ Premix 50 mls @ 25 mls/hr IV ONETIME ONE Stop: 10/02/16 16:20 Last Admin: 10/02/16 15:15 Dose: 25 mls/hr Potassium Chloride/Sodium Chloride (Normal Saline With 40 Meq Kcl) 1,000 mls @ 150 mls/hr IV ASDIRECTED [facility] Last Admin: 10/03/16 08:24 Dose: 150 mls/hr Sodium Chloride (Normal Saline) Confirm Administered Dose 50 mls @ as directed .ROUTE .STK-MED ONE Stop: 10/03/16 01:34 Last Admin: 10/03/16 01:44 Dose: Not Given Sodium Chloride (Normal Saline) 100 mls @ 65 mls/hr IV ASDIRECTED ON LICENSE OF [facility] Last Admin: 10/03/16 09:46 Dose: 65 mls/hr Iopamidol (Isovue-370 (76%)) 100 ml IVPUSH ONETIME ONE Stop: 10/03/16 09:24 Last Admin: 10/03/16 09:46 Dose: 100 ml Iopamidol (Isovue-370 (76%)) 50 ml IVPUSH ONETIME ONE Stop: 10/03/16 09:24 Last Admin: 10/03/16 11:02 Dose: Not Given Metoclopramide HCl (Reglan) 5 mg IVPUSH ONETIME ONE Stop: 10/02/16 09:55 Last Admin: 10/02/16 10:11 Dose: Not Given Ondansetron HCl (Zofran) 4 mg IVPUSH ONETIME ONE Stop: 10/02/16 08:12 Last Admin: 10/02/16 08:25 Dose: 4 mg Ondansetron HCl (Zofran) 4 mg IVPUSH ONETIME ONE Stop: 10/02/16 10:05 Last Admin: 10/02/16 10:10 Dose: 4 mg Ondansetron HCl (Zofran) 4 mg IVPUSH ONETIME ONE Stop: 10/02/16 10:05 Last Admin: 10/02/16 10:10 Dose: Not Given Ondansetron HCl (Zofran) 8 mg IV Q8H PRN PRN Reason: Nausea/Vomiting Last Admin: 10/02/16 15:28 Dose: 8 mg Prochlorperazine Edisylate (Compazine) 5 mg IVPUSH Q6H PRN PRN Reason: Nausea/Vomiting Prochlorperazine Edisylate (Compazine) 5 mg IVPUSH Q6H [facility] Stop: 10/03/16 12:01 Last Admin: 10/03/16 11:48 Dose: 5 mg - Exam Quality Assessment: supplemental oxygen, DVT prophylaxis General: alert, oriented, cooperative, mild distress HEENT: Pupils equal, Pupils reactive, EOMI Neck: trachea midline Lungs: Normal respiratory effort Cardiovascular: tachycardia. No: regular rate Abdomen: bowel sounds present, soft, no tenderness, no distension (Female) Exam: Deferred Back Exam: normal inspection Extremities: normal pulses Skin: warm Neurological: normal speech Psy/Mental Status: alert, depressed - Problem List & Annotations (1) Back pain SNOMED Code(s): 514049959 Code(s): M54.9 - DORSALGIA, UNSPECIFIED Status: Acute Current Visit: Yes Qualifiers: Back pain location: low back pain Chronicity: acute Back pain laterality : midline Sciatica presence: without sciatica Qualified Code(s): M54.5 - Low back pain (2) Chemotherapy induced nausea and vomiting SNOMED Code(s): 326655414 Code(s): R11.2 - NAUSEA WITH VOMITING, UNSPECIFIED; T45.1X5A - ADVERSE EFFECT OF ANTINEOPLASTIC AND IMMUNOSUP DRUGS, INIT Status: Acute Current Visit: Yes (3) Hypokalemia SNOMED Code(s): 98233745 Code(s): E87.6 - HYPOKALEMIA Status: Acute Current Visit: Yes (4) Abdominal pain SNOMED Code(s): 10139485 Code(s): R10.9 - UNSPECIFIED ABDOMINAL PAIN Status: Acute Current Visit: No Qualifiers: Abdominal location: right lower quadrant Qualified Code(s): R10.31 - Right lower quadrant pain (5) Lesion of liver SNOMED Code(s): 337381156 Code(s): K76.9 - LIVER DISEASE, UNSPECIFIED Status: Acute Current Visit: No (6) Squamous cell carcinoma SNOMED Code(s): 190292740 Code(s): C80.1 - MALIGNANT (PRIMARY) NEOPLASM, UNSPECIFIED Status: Acute Current Visit: No - Problem List Review Problem List Initiated/Reviewed/Updated: Yes - My Orders Last 24 Hours: My Active Orders 10/03/16 12:00 Scopolamine [Transderm-Scop] 1.5 mg TOP Q72H 10/03/16 19:30 Acetaminophen/HYDROcodone [[place] 325-10 MG] 1 tab PO Q4H PRN 10/03/16 Lunch Regular Diet [DIET] 10/04/16 09:00 Enoxaparin [Lovenox] 40 mg SUBCUT DAILY 10/06/16 12:00 Remove Patch 0 ea TRDERM Q72H - Plan Plan:: Impression: Possible Sq Cell Ca (cervical) with mets to back Febrile illness as OP empirically treated with Cipro/Flagyl Post CTX nausea and vomiting Frequent loose stools, watery content without blood or mucous History of cervical cancer History of migraine Elevated D dimer Plan: Chronic pain mgt MD has requested MRI with/without contrast, will be scheduled 10/06/16. Eval for DVT/PE today IVF; change to 0.9 NS without KCl; advance diet as tolerated. Replace electrolytes DC empiric ATB Stool cultures are pending. Query contact isolation Pain management Infectious work up for treatable cause Anti-emetics, start with ATC as well as prn. '
[2016-10-03] MEDS: Prochlorperazine 10 MG/2 ML SDV IVPUSH PRN (20:28)
[2016-10-04] MEDS: Acetaminophen/HYDROcodone 325-10 MG Tab PO PRN ×2 (01:19→06:41)
[2016-10-04] MEDS: Pantoprazole 40 MG Vial IVPUSH SCH (01:20)
[2016-10-04] MEDS: Prochlorperazine 10 MG/2 ML SDV IVPUSH PRN (06:41)
[2016-10-04] MEDS: Morphine 15 MG Tab.ER PO SCH (08:48)
[2016-10-04] MEDS: Gabapentin 300 MG Cap PO SCH (08:49)
[2016-10-04 08:57] VITALS: BP 115/76
[2016-10-04] MEDS ORDERED: Enoxaparin 40 MG/0.4 ML Syringe SUBCUT SCH (09:00)
[2016-10-04] MEDS ORDERED: HYDROmorphone 2 MG Tab PO PRN (09:56)
--- NOTE | 2016-10-04 13:10 | PCM.DCSUM1 ---
Discharge Summary - Hospital Course Free Text/Narrative:: 41 year old female with a presumpitve history of cervical cancer presented several days after her CTX. The patient had been seen recently by a pain specialist which started her on long acting MSO4 as well as Dilaudid. Flagyl and Cipro were also started for a possible infection empirically. After the ATBs began, the patient reported profound nausea and vomiting. An infectious source was ruled out during her hospitalization including but not limited to pneumonia, UTI as well as Influenza. After aggressive fluid resuscitation, anti -emetics and pain meds, the patient returned to her baseline. No narcotic prescription were provided at [facility] as the patient is on a pain contract. An MRI with and without contrast will be performed on 10/06/16 as requested by her healthcare provider. Primary Dx Intractable nausea and vomiting of unclear etiology Squamous cell carcinoma, unspecified with mets Condition Stable Diet As tolerated Prescriptions Scopolamine transdermal as directed. Restoril 15 mg q HS prn insomnia Diagnostic/radiographic MRI 10/06/16 at 10:00 am Activity as tolerated Appts PCP 2 weeks Pain specialist 1 week Oncologist as arranged Bañuelos: Cotton Baler Onco, Maria L Rosen MD ([phone]; [phone]), TBD - Discharge Data Discharge Date: 10/04/16 Discharge Disposition: Home, Self-Care 01 Condition: Good - Discharge Diagnosis/Problem(s) (1) Back pain SNOMED Code(s): 260013974 ICD Code: M54.9 - DORSALGIA, UNSPECIFIED Status: Acute Qualifiers: Back pain location: low back pain Chronicity: acute Back pain laterality : midline Sciatica presence: without sciatica Qualified Code(s): M54.5 - Low back pain (2) Chemotherapy induced nausea and vomiting SNOMED Code(s): 109412155 ICD Code: R11.2 - NAUSEA WITH VOMITING, UNSPECIFIED; T45.1X5A - ADVERSE EFFECT OF ANTINEOPLASTIC AND IMMUNOSUP DRUGS, INIT Status: Acute (3) Hypokalemia SNOMED Code(s): 84647614 ICD Code: E87.6 - HYPOKALEMIA Status: Acute (4) Abdominal pain SNOMED Code(s): 04444951 ICD Code: R10.9 - UNSPECIFIED ABDOMINAL PAIN Status: Acute Qualifiers: Abdominal location: right lower quadrant Qualified Code(s): R10.31 - Right lower quadrant pain (5) Lesion of liver SNOMED Code(s): 718567929 ICD Code: K76.9 - LIVER DISEASE, UNSPECIFIED Status: Acute (6) Squamous cell carcinoma SNOMED Code(s): 684058777 ICD Code: C80.1 - MALIGNANT (PRIMARY) NEOPLASM, UNSPECIFIED Status: Acute - Patient Instructions Diet: Usual Diet as Tolerated Activity: As Tolerated Driving: May Drive Today Showering/Bathing: May Shower Notify Provider of: Fever, Increased Pain, Nausea and/or Vomiting - Discharge Plan Prescriptions/Med Rec: Scopolamine [Transderm-Scop] 1.5 mg TOP Q72H PRN #15 patch PRN Reason: Nausea/Vomiting Temazepam [Restoril] 15 mg PO BEDTIME PRN #30 cap PRN Reason: Insomnia Home Medications: Home Meds ALPRAZolam [Alprazolam] 0.5 mg PO Q4HR PRN 08/22/16 [History] Ferrous Sulfate [Iron] 1 tab PO DAILY 08/22/16 [History] Gabapentin [Neurontin] 300 mg PO TID 08/22/16 [History] Ibuprofen 400 mg PO Q6HR PRN 08/22/16 [History] Ibuprofen/Diphenhydramine Cit [Advil Pm Caplet] 1 tab PO DAILY PRN 08/22/16 [ History] Morphine [MS Contin] 1 tab PO Q12HR 08/22/16 [History] Naproxen Sodium [Aleve] 1 tab PO Q12HR PRN 08/22/16 [History] Ondansetron HCl [Zofran] 8 mg PO Q6HR PRN 08/22/16 [History] Promethazine [Phenergan] 0.5 mg TOP Q6HR PRN 08/22/16 [History] diphenhydrAMINE [Benadryl] 25 mg PO Q6HR PRN 08/22/16 [History] HYDROmorphone [Dilaudid] 4 mg PO Q3H PRN MDD 8 tabs/day 10/02/16 [History] Scopolamine [Transderm-Scop] 1.5 mg TOP Q72H PRN #15 patch 10/04/16 [Rx] Temazepam [Restoril] 15 mg PO BEDTIME PRN #30 cap 03/04/17 [Rx] Patient Handouts: Chemotherapy, Nausea and Vomiting, Adult, [id number], Diarrhea, Adult, [id number] Forms: ED Department Discharge Referrals: Chris,XAVIER Chavez [Primary Care Provider] - (Please call and schedule a follow up apt. with Roxy Perez in two weeks. ) - Discharge Summary/Plan Comment DC Time >30 min.: No - General Info Date of Service: 10/02/16 Functional Status: Reports: pain controlled, tolerating diet, ambulating, urinating - Review of Systems General: Reports: no symptoms HEENT: Reports: no symptoms Pulmonary: Reports: no symptoms Cardiovascular: Reports: no symptoms Gastrointestinal: Reports: No symptoms Genitourinary: Reports: no symptoms Musculoskeletal: Reports: no symptoms Skin: Reports: no symptoms Neurological: Reports: no symptoms Psychiatric: Reports: no symptoms - Patient Data Vitals - Most Recent: Last Vital Signs Temp 36.6 C 10/04/16 08:52 Pulse 86 10/04/16 08:52 Resp 14 10/04/16 08:52 BP 115/76 10/04/16 08:52 Pulse Ox 97 10/04/16 08:52 Weight - Most Recent: 123.7 kg I&O - Last 24 hours: Intake & Output 10/03/16 10/04/16 10/04/16 22:59 06:59 14:59 Intake Total 1473 600 400 Output Total 575 1500 300 Balance 898 -900 100 Lab Results - Last 24 hrs: Laboratory Results - last 24 hr 10/03/16 10/04/16 10/04/16 Range/Units 14:27 06:10 06:10 WBC 2.43 L* (3.98-10.04) K/mm3 RBC 2.82 L (3.98-5.22) M/mm3 Hgb 9.0 L (11.2-15.7) gm/L Hct 27.6 L (34.1-44.9) % MCV 97.9 H (79.4-94.8) fl MCH 31.9 (25.6-32.2) pg MCHC 32.6 (32.2-35.5) g/dl RDW Std Deviation 57.4 H (36.4-46.3) fL Plt Count 241 (182-369) K/mm3 MPV 8.1 L (9.4-12.3) fl Neut % (Auto) 76.6 H (34.0-71.1) % Lymph % (Auto) 16.9 L (19.3-51.7) % [place] % (Auto) 0.8 L (4.7-12.5) % Eos % (Auto) 4.9 (0.7-5.8) Baso % (Auto) 0.8 (0.1-1.2) % Neut # 1.86 (1.56-6.13) K/mm3 Lymph # 0.41 L (1.18-3.74) K/mm3 [place] # 0.02 L (0.24-0.36) K/mm3 Eos # 0.12 (0.04-0.36) K/mm3 Baso # 0.02 (0.01-0.08) K/mm3 Manual Slide Review Abnormal smear D-Dimer, Quantitative 9.12 H (0.19-0.59) mg/L Sodium 140 (136-145) mEq/L Potassium 4.3 (3.5-5.1) mEq/L Chloride 108 H (98-107) mEq/L Carbon Dioxide 24 (21-32) mEq/L Anion Gap 12.3 (5-15) BUN 6 L (7-18) mg/dL Creatinine 0.8 (0.55-1.02) mg/dL Est Cr Clr Drug Dosing 72.45 mL/min Estimated GFR (MDRD) > 60 (>60) mL/min BUN/Creatinine Ratio 7.5 L (14-18) Glucose 79 (74-106) mg/dL Calcium 8.6 (8.5-10.1) mg/dL Magnesium 1.2 L (1.8-2.4) mg/dl Med Orders - Current: Current Medications Acetaminophen (Tylenol) 650 mg PO Q6H PRN PRN Reason: Fever Enoxaparin Sodium (Lovenox) 40 mg SUBCUT DAILY [facility] Last Admin: 10/04/16 08:49 Dose: 40 mg Fentanyl (Duragesic) 25 mcg TRDERM Q72H [facility] Last Admin: 10/02/16 15:12 Dose: 25 mcg Gabapentin (Neurontin) 300 mg PO TID [facility] Last Admin: 10/04/16 08:49 Dose: 300 mg Hydromorphone HCl (Dilaudid) 2 mg IVPUSH Q4H PRN PRN Reason: Pain (moderate 4-6) Hydromorphone HCl (Dilaudid) 4 mg PO Q3H PRN PRN Reason: Pain (moderate 4-6) Ondansetron HCl 8 mg/ Sodium (Chloride) 54 mls @ 108 mls/hr IV Q8H PRN PRN Reason: NAUSEA/VOMITING Last Admin: 10/03/16 01:43 Dose: 108 mls/hr Lorazepam (Ativan) 1 mg IVPUSH Q8H PRN PRN Reason: Anxiety Last Admin: 10/03/16 08:25 Dose: 1 mg Miscellaneous Information (Remove Patch) 0 ea TRDERM Q72H [facility] Morphine Sulfate (Ms Contin) 30 mg PO Q12HR [facility] Last Admin: 10/04/16 08:48 Dose: 30 mg Pantoprazole Sodium (Protonix Iv) 40 mg IVPUSH Q12H [facility] Last Admin: 10/04/16 01:20 Dose: 40 mg Prochlorperazine Edisylate (Compazine) 5 mg IVPUSH Q6H PRN PRN Reason: Nausea/Vomiting Last Admin: 10/04/16 06:41 Dose: 5 mg Scopolamine (Transderm-Scop) 1.5 mg TOP Q72H [facility] Last Admin: 10/03/16 12:15 Dose: 1.5 mg Sodium Chloride (Saline Flush) 10 ml FLUSH ONETIME PRN PRN Reason: IV FLUSH Last Admin: 10/03/16 09:47 Dose: 10 ml Temazepam (Restoril) 15 mg PO BEDTIME PRN PRN Reason: Insomnia Last Admin: 10/03/16 21:05 Dose: 15 mg Discontinued Medications Acetaminophen/Hydrocodone Bitart ([place] 325-10 Mg) 1 tab PO Q4H PRN PRN Reason: Pain (moderate 4-6) Last Admin: 10/04/16 06:41 Dose: 1 tab Enoxaparin Sodium (Lovenox) 40 mg SUBCUT DAILY [facility] Enoxaparin Sodium (Lovenox) 56.2 mg SUBCUT Q12HR [facility] Last Admin: 10/02/16 20:51 Dose: 56.2 mg Enoxaparin Sodium (Lovenox) 56 mg SUBCUT Q12HR [facility] Last Admin: 10/03/16 08:26 Dose: 56 mg Famotidine (Pepcid) 20 mg IVPUSH ONETIME ONE Stop: 10/02/16 08:14 Last Admin: 10/02/16 08:25 Dose: 20 mg Heparin Sodium (Porcine) (Heparin Lock Flush 100 Units/Ml Syringe) Confirm Administered Dose 500 units .ROUTE .STK-MED ONE Stop: 10/04/16 12:04 Last Admin: 10/04/16 12:06 Dose: 500 units Hydromorphone HCl (Dilaudid) 1 mg IVPUSH ONETIME ONE Stop: 10/02/16 09:09 Last Admin: 10/02/16 09:18 Dose: 1 mg Sodium Chloride (Normal Saline) 1,000 mls @ 999 mls/hr IV ONETIME [facility] Last Admin: 10/02/16 08:25 Dose: 999 mls/hr Potassium Chloride 10 meq/ (Premix) 100 mls @ 50 mls/hr IV ASDIRECTED ONE Stop: 10/02/16 11:21 Last Admin: 10/02/16 09:32 Dose: 50 mls/hr Sodium Chloride (Normal Saline) 1,000 mls @ 500 mls/hr IV ONETIME ONE Stop: 10/02/16 12:00 Last Admin: 10/02/16 10:10 Dose: 500 mls/hr Potassium Chloride 10 meq/ (Premix) 100 mls @ 50 mls/hr IV ASDIRECTED ONE Stop: 10/02/16 13:03 Last Admin: 10/02/16 11:10 Dose: 50 mls/hr Magnesium Sulfate 2 gm/ Premix 50 mls @ 25 mls/hr IV ONETIME ONE Stop: 10/02/16 16:20 Last Admin: 10/02/16 15:15 Dose: 25 mls/hr Potassium Chloride/Sodium Chloride (Normal Saline With 40 Meq Kcl) 1,000 mls @ 150 mls/hr IV ASDIRECTED [facility] Last Admin: 10/03/16 08:24 Dose: 150 mls/hr Sodium Chloride (Normal Saline) Confirm Administered Dose 50 mls @ as directed .ROUTE .STK-MED ONE Stop: 10/03/16 01:34 Last Admin: 10/03/16 01:44 Dose: Not Given Sodium Chloride (Normal Saline) 100 mls @ 65 mls/hr IV ASDIRECTED [facility] Last Admin: 10/03/16 09:46 Dose: 65 mls/hr Iopamidol (Isovue-370 (76%)) 100 ml IVPUSH ONETIME ONE Stop: 10/03/16 09:24 Last Admin: 10/03/16 09:46 Dose: 100 ml Iopamidol (Isovue-370 (76%)) 50 ml IVPUSH ONETIME ONE Stop: 10/03/16 09:24 Last Admin: 10/03/16 11:02 Dose: Not Given Metoclopramide HCl (Reglan) 5 mg IVPUSH ONETIME ONE Stop: 10/02/16 09:55 Last Admin: 10/02/16 10:11 Dose: Not Given Ondansetron HCl (Zofran) 4 mg IVPUSH ONETIME ONE Stop: 10/02/16 08:12 Last Admin: 10/02/16 08:25 Dose: 4 mg Ondansetron HCl (Zofran) 4 mg IVPUSH ONETIME ONE Stop: 10/02/16 10:05 Last Admin: 10/02/16 10:10 Dose: 4 mg Ondansetron HCl (Zofran) 4 mg IVPUSH ONETIME ONE Stop: 10/02/16 10:05 Last Admin: 10/02/16 10:10 Dose: Not Given Ondansetron HCl (Zofran) 8 mg IV Q8H PRN PRN Reason: Nausea/Vomiting Last Admin: 10/02/16 15:28 Dose: 8 mg Prochlorperazine Edisylate (Compazine) 5 mg IVPUSH Q6H PRN PRN Reason: Nausea/Vomiting Prochlorperazine Edisylate (Compazine) 5 mg IVPUSH Q6H [facility] Stop: 10/03/16 12:01 Last Admin: 10/03/16 11:48 Dose: 5 mg - Exam Quality Assessment: Reports: DVT prophylaxis General: Reports: alert, oriented, cooperative, no acute distress HEENT: Reports: Pupils equal, Pupils reactive, EOMI Neck: Reports: supple, trachea midline Lungs: Reports: Clear to auscultation, Normal respiratory effort Cardiovascular: Reports: regular rate, regular rhythm Abdomen: Reports: bowel sounds present, soft, no tenderness, no distension (Female) Exam: Deferred Rectal (Female) Exam: Deferred Back Exam: Reports: normal inspection Extremities: Reports: no edema, normal pulses Skin: Reports: warm Neurological: Reports: no new focal deficit, normal gait, normal speech Psy/Mental Status: Reports: alert, normal affect, normal mood *Q Meaningful Use (DIS) - VTE *Q VTE Criteria *Q: - Stroke *Q Stroke Criteria *Q: - AMI *Q AMI Criteria *Q:
== END 2016-10-04 12:15 | disposition home or self-care (01) | DRG 392 ==
LOC: JD.ED 07:27 → JD.MS 12:15 → OBSVTOIN 10-03 09:37
PROVIDERS: ADMIT Internal Medicine Cardiovascular Disease; ATTEND Internal Medicine Cardiovascular Disease
DX: R11.2 Nausea with vomiting, unspecified (principal); C79.9 Secondary malignant neoplasm of unspecified site; E87.6 Hypokalemia; R10.9 Unspecified abdominal pain; M54.5 Low back pain; K76.9 Liver disease, unspecified; C80.1 Malignant (primary) neoplasm, unspecified; Z85.41 Personal history of malignant neoplasm of cervix uteri; F41.9 Anxiety disorder, unspecified; D64.9 Anemia, unspecified; Z87.891 Personal history of nicotine dependence; Z79.899 Other long term (current) drug therapy; Z88.8 Allergy status to other drugs, medicaments and biological substances
CPT/HCPCS: 36415; 71010; 71010-26; 71275; 71275-26; 80048; 80053; 81001; 81025; 83605; 83735; 85025; 85379; 86140; 86738; 87046; 87425; 87493; 87502; 87503; 87804; 89055; 93970; 93970-26; 96360; 96361; 96365; 96366; 96367; 96372; 96375; 96376; 96523; 99285; 99285-25; A9270-GY; C9113; G0378; J0780; J1170; J1642; J1650; J2060; J2405; J3475; J3480; J7030; J7040; J7050; Q9967

== ENCOUNTER 2017-04-02 13:13 | Emergency (ER) | payer MEDICAID ==
--- NOTE | 2017-04-02 13:59 | EDM.PDOC ---
ED HPI GENERAL MEDICAL PROBLEM - General Chief Complaint: Cardiovascular Problem Stated Complaint: HIGH BLOOD PRESSURE Time Seen by Provider: 04/02/17 13:32 Source of Information: Reports: Patient, RN Notes Reviewed, Significant Other ( Boyfriend) History Limitations: Reports: No Limitations - History of Present Illness INITIAL COMMENTS - FREE TEXT/NARRATIVE: The patient states that she is being treated for stage IV squamous cell carcinoma, primary site unknown, with chemotherapy that is intended to be given every 2 weeks, however, due to competitions, her last chemotherapy was on 2016. She states that she was to receive chemotherapy yesterday, however, her hemoglobin was found to be depressed at 6.8, therefore she did not receive chemotherapy, and a single unit of PRBC's was ordered to be given today. The patient was told that her blood pressure was elevated yesterday, and the patient tells me that it has been elevated for more than a month. The patient's oncologist recommended that the patient follow-up with her PCP, Roxy Perez, for blood pressure treatment, however, when the patient saw Ms. Perez today, she was directed to the ED. The patient reports whole body pain, for which she is treated with a Dilaudid pain pump, and she reports having had a headache this morning, which is only slight at this time. She denies blurry vision, and she denies feeling anxious, although it is noted that her oxygen saturation is 100% on room air. Here in the ED, the patient's BP is found to be 215/110 with a heart rate of 83. The patient states that she does not have a history of hypertension, and is not currently on blood pressure medication. The patient's PCP is Roxy Perez. Her oncologist is Dr. Bellamy. Her pain specialist is Dr. Mejia. Right Hip Pain Score (Numeric/FACES): 5 - Related Data Allergies Allergy/AdvReac Type Severity Reaction Status Date / Time paclitaxel Allergy Anaphylactic Verified 04/02/17 13:33 Shock Home Meds: Home Meds ALPRAZolam [Alprazolam] 0.5 mg PO Q4HR PRN 08/22/16 [History] Gabapentin [Neurontin] 300 mg PO TID 08/22/16 [History] Ibuprofen 400 mg PO Q6HR PRN 08/22/16 [History] Ibuprofen/Diphenhydramine Cit [Advil Pm Caplet] 1 tab PO DAILY PRN 08/22/16 [ History] Morphine [MS Contin] 1 tab PO Q12HR 08/22/16 [History] Ondansetron HCl [Zofran] 8 mg PO Q6HR PRN 08/22/16 [History] Promethazine [Phenergan] 0.5 mg TOP Q6HR PRN 08/22/16 [History] diphenhydrAMINE [Benadryl] 25 mg PO Q6HR PRN 08/22/16 [History] HYDROmorphone [Dilaudid] 4 mg PO Q3H PRN MDD 8 tabs/day 10/02/16 [History] Scopolamine [Transderm-Scop] 1.5 mg TOP Q72H PRN #15 patch 10/04/16 [Rx] Temazepam [Restoril] 15 mg PO BEDTIME PRN #30 cap 10/04/16 [Rx] Lisinopril 10 mg PO QPM #30 tablet 04/02/17 [Rx] Past Medical History HEENT History: Reports: Impaired Vision, Sinusitis Gastrointestinal History: Reports: GERD 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: Neurological History: Reports: Neuropathy, Peripheral Psychiatric History: Reports: Anxiety Hematologic History: Reports: Anemia Oncologic (Cancer) History: Reports: Squamous Cell Carcinoma (Stage IV) - Infectious Disease History Infectious Disease History: Reports: C-Difficile - Past Surgical History Cardiovascular Surgical History: Reports: Other (See Below) (Right Port-A-Cath) Respiratory Surgical History: Reports: Other (See Below) (Bronchoscopy) GI Surgical History: Reports: Colonoscopy, EGD, Other (See Below) Female Surgical History: Reports: Section (x 1), Tubal Ligation ( unilateral) Neurological Surgical History: Reports: Other (See Below) (Pain pump) Social & Family History - Family History Family Medical History: Noncontributory Cardiac: Reports: [place] Other Cardiac Family History: mother of [place] Endocrine/Metabolic: Reports: Diabetes, type II Other Endocrine/Metabolic Family History: mother and father Oncologic: Reports: Skin Other Oncologic Family History: father - Tobacco Use Smoking Status *Q: Former Smoker Packs/Tins Daily: 0.3 Month Tobacco Last Used: Quit 2009 - Caffeine Use Caffeine Use: Reports: Tea - Alcohol Use Alcohol Use History: Yes Alcohol Use Frequency: Socially - Recreational Drug Use Recreational Drug Use: No - Living Situation & Occupation Living situation: Reports: , with Significant Other (Boyfriend) Occupation: Disabled ED ROS GENERAL - Review of Systems Review Of Systems: See Below Constitutional: Reports: No Symptoms HEENT: Reports: No Symptoms Respiratory: Reports: No Symptoms Cardiovascular: Reports: No Symptoms Endocrine: Reports: No Symptoms GI/Abdominal: Reports: Nausea : Reports: No Symptoms Musculoskeletal: Reports: No Symptoms Skin: Reports: No Symptoms Neurological: Reports: No Symptoms Psychiatric: Reports: No Symptoms Hematologic/Lymphatic: Reports: No Symptoms Immunologic: Reports: No Symptoms ED EXAM, GENERAL - Physical Exam Exam: See Below Exam Limited By: No Limitations General Appearance: Alert, WD/WN, No Apparent Distress Eye Exam: Bilateral Eye: Normal Inspection Ears: Normal External Exam, Hearing Grossly Normal Nose: Normal Inspection, No Blood Throat/Mouth: Normal Inspection, Normal Lips, Normal Voice, No Airway Compromise Head: Atraumatic, Normocephalic Neck: Normal Inspection, Full Range of Motion Respiratory/Chest: No Respiratory Distress, Lungs Clear, Normal Breath Sounds, No Accessory Muscle Use Cardiovascular: Normal Peripheral Pulses, Regular Rate, Rhythm, No Gallop, No JVD, No Murmur, No Rub Peripheral Pulses: 4+: Radial (L), Radial (R) GI/Abdominal: Normal Bowel Sounds, Other (The patient was wearing a brace, which was not removed for examination, as the patient had no abdominal complaints) (Female) Exam: Deferred Rectal (Female) Exam: Deferred Back Exam: Normal Inspection Extremities: Normal Inspection, Normal Range of Motion, No Pedal Edema, Normal Capillary Refill Neurological: Alert, Oriented, Normal Cognition, No Motor/Sensory Deficits Psychiatric: Normal Affect Skin Exam: Warm, Dry, Intact, Normal Color, No Rash Lymphatic: No Adenopathy Course - Vital Signs Last Recorded V/S: Last Vital Signs Temp 36.7 C 04/02/17 13:34 Pulse 83 04/02/17 13:34 Resp 18 04/02/17 13:34 BP 171/99 H 04/02/17 16:24 Pulse Ox 100 04/02/17 13:34 - Orders/Labs/Meds Labs: Laboratory Tests 04/02/17 04/02/17 Range/Units 14:50 15:15 Sodium 140 (136-145) mEq/L Potassium 4.1 (3.5-5.1) mEq/L Chloride 106 (98-107) mEq/L Carbon Dioxide 26 (21-32) mEq/L Anion Gap 12.1 (5-15) BUN 17 (7-18) mg/dL Creatinine 1.5 H (0.55-1.02) mg/dL Est Cr Clr Drug Dosing 36.87 mL/min Estimated GFR (MDRD) 38 (>60) mL/min BUN/Creatinine Ratio 11.3 L (14-18) Glucose 81 (74-106) mg/dL Calcium 8.4 L (8.5-10.1) mg/dL Urine Color Yellow (Yellow) Urine Appearance Clear (Clear) Urine pH 6.0 (5.0-8.0) Ur Specific [place] 1.020 (1.005-1.030) Urine Protein 2+ H (Negative) Urine Glucose (UA) Negative (Negative) Urine Ketones Negative (Negative) Urine Occult Blood 2+ H (Negative) Urine Nitrite Negative (Negative) Urine Bilirubin Negative (Negative) Urine Urobilinogen 0.2 (0.2-1.0) Ur Leukocyte Esterase Negative (Negative) Urine RBC 5-10 H (0-5) /hpf Urine WBC 0-5 (0-5) /hpf Ur Epithelial Cells 0-5 (0-5) /hpf Urine Bacteria Rare (FEW) /hpf Hyaline Casts 0-5 (0-5) /lpf Urine Mucus Moderate H (FEW) /hpf Meds: Medications Discontinued Medications Generic Name Dose Route Start Last Admin Trade Name Freq PRN Reason Stop Dose Admin Lisinopril 10 mg 04/02/17 16:00 04/02/17 16:22 Prinivil PO 04/02/17 16:01 10 mg ONETIME ONE Administration - Re-Assessments/Exams Free Text/Narrative Re-Assessment/Exam: 04/02/17 13:56 The patient's blood pressure is significantly elevated, although began to drop during my history and physical examination. While the patient denies feeling anxious, she does have a history of anxiety disorder, and I noticed that her oxygen saturation is 100% on room air, consistent with hyperventilation. I have turned the lights off in the patient's room, and asked her to relax for the next 10 or 15 minutes. We will recheck a blood pressure at that time. If still elevated, current guidelines would recommend that I start the patient on antihypertensive medication. Rapid decrease of her blood pressure is NOT recommended. If her blood pressure decreases on its own, then no treatment is required at all. 04/02/17 14:27 After about a 10 or 15 minute rest in a quiet, dark room, the patient's blood pressure is still elevated at 193/114. As above, current guidelines recommend the initiation of an antihypertensive medication. The patient does not have a history of renal insufficiency, however, her most recent chemistry panel was in October of this year. The patient states that she had a chemistry panel obtained yesterday at the [facility]. We will endeavor to obtain those results. 04/02/17 15:02 The results of a CBC and CMP drawn yesterday, 04/01/2017, have been acquired. The patient's blood glucose was normal at 87. Her BUN/Cr was elevated at 18/1.49 , with an estimated GFR of 38. An CLAUDIA inhibitor or ARB should be used for initial monotherapy in patients who have diabetic nephropathy or nondiabetic chronic kidney disease complicated by proteinuria. I will check a urinalysis for proteinuria. If absent, I would recommend starting the patient on a long- acting calcium channel marsha, such as Norvasc. 04/02/17 15:59 The patient's urine demonstrate 2+ protein, therefore an CLAUDIA inhibitor or ARB is recommended. I will start the patient on lisinopril 10 mg daily, and have her follow-up with her PCP. I am also recommending that the patient be seen by a seam presser to evaluate the cause of her renal insufficiency and hypertension - whether it is related to her chemotherapy, or due to renal artery stenosis. Departure - Departure Time of Disposition: 16:14 Disposition: Home, Self-Care 01 Condition: Good Clinical Impression: Hypertension, Renal insufficiency Prescriptions: Lisinopril 10 mg PO QPM #30 tablet Instructions: Hypertension, [id number] Referrals: Roxy Perez PA [Primary Care Provider] - Forms: ED Department Discharge Additional Instructions: You were seen in the emergency room for elevated blood pressure. Your blood pressure improved somewhat with rest in a dark, quiet place, but not enough. Bloodwork drawn yesterday shows that your kidneys are not working optimally, and a urinalysis obtained today shows protein in your urine. Based on this information, you have been started on the blood pressure medicine lisinopril. Take one tablet at bedtime, starting tomorrow, 04/03/2017, as prescribed. We recommend that you check your blood pressure 2-3 times a week for 2-3 weeks. It is important that you check your blood pressure under restful conditions, meaning that you are sitting quietly for at least 5, and preferably 15 minutes, that you are not in pain, not anxious, and not ill. Write the numbers down and take them with you when you follow-up with Roxy Samples in 3 to 4 weeks. We are recommending that you consider evaluation by a Journey Lineman (kidney specialist) to determine not only why your kidneys are not functioning properly , but also determine the optimum treatment. If any other problems, please do not hesitate to return to the ER.
[2017-04-02] MEDS ORDERED: Lisinopril 10 MG Tab PO ONE (16:00)
[2017-04-02 16:24] VITALS: BP 171/99
== END 2017-04-02 16:50 | disposition home or self-care (01) ==
LOC: JD.ED 13:13
DX: I10 Essential (primary) hypertension (principal); N28.9 Disorder of kidney and ureter, unspecified; K21.9 Gastro-esophageal reflux disease without esophagitis; F41.9 Anxiety disorder, unspecified; Z86.2 Personal history of diseases of the blood and blood-forming organs and certain disorders involving the immune mechanism; Z79.899 Other long term (current) drug therapy; Z87.891 Personal history of nicotine dependence
CPT/HCPCS: 36415; 36591; 80048; 81001; 99284; A9270; 99285

== ENCOUNTER 2018-02-08 17:09 | Emergency (ER) | payer MEDICAID ==
[2018-02-08 17:21] VITALS: BP 120/78
--- NOTE | 2018-02-08 19:26 | EDM.PDOC ---
ED HPI GENERAL MEDICAL PROBLEM - General Chief Complaint: Back Pain or Injury Stated Complaint: FEVER/BLADDER ISSUES Time Seen by Provider: 02/08/18 17:21 Source of Information: Reports: Patient, Significant Other (Boyfriend) History Limitations: Reports: No Limitations - History of Present Illness INITIAL COMMENTS - FREE TEXT/NARRATIVE: The patient has stage IV squamous cell carcinoma, primary unknown, under treatment by the Oncologist Dr. Bellamy. The patient has a right ureteral stent, her fourth, exchanged approximately every 3 months per the Urologist Dr. Stout for the past 9 months or so, due to external compression of her right ureter. Her current stent was placed 01/26/2018. She states that prior to every stent replacement, she has a pre-op evaluation. She states that she was having symptoms of dysuria and urinary urgency, and found to have a UTI at her pre-op evaluation 01/20/2018, at which time she was prescribed Keflex BID x 7 days. She states that she always has some right flank pain for a few days following the stent replacement, but that this time the pain has persisted. She states that she continued to have dysuria and urinary urgency, and a repeat urinalysis on 02/02/2018 also found a UTI, therefore the patient was prescribed Augmentin BID x 3 days, which only mildly helped her symptoms. She now presents to the ED, stating that she continues to have sharp right back pain, dysuria, and urinary urgency. The patient is also found to have a temperature of 102.6 here in the ED. No recent cough. Review of medical records finds that the urine cultures from 01/20/2018 and 2017 both grew mixed brigido, suggestive of contamination. The patient's PCP is Apryl Ontiveros. Her Oncologist is Dr. Bellamy. Her Urologist is Dr. Stout. Her pain specialist is Dr. Mejia. pelvic/back Pain Score (Numeric/FACES): 10 - Related Data Allergies Allergy/AdvReac Type Severity Reaction Status Date / Time paclitaxel Allergy Severe Anaphylactic Verified 02/08/18 17:21 Shock ciprofloxacin Allergy Cannot Verified 02/08/18 17:21 Remember metronidazole Allergy Cannot Verified 02/08/18 17:21 Remember Home Meds: Home Meds ALPRAZolam [Alprazolam] 0.5 mg PO Q8H PRN 08/22/16 [History] Gabapentin [Neurontin] 300 mg PO BID 08/22/16 [History] Ondansetron HCl [Zofran] 8 mg PO Q6HR PRN 08/22/16 [History] Promethazine [Phenergan] 0.5 mg TOP Q6HR PRN 08/22/16 [History] diphenhydrAMINE [Benadryl] 25 mg PO Q6HR PRN 08/22/16 [History] Acetaminophen [Tylenol Extra Strength] 500 mg PO Q4H PRN 05/23/17 [History] Ascorbic Acid [Vitamin C] 2,000 mg PO DAILY 05/23/17 [History] Baclofen [Gablofen] 0.5 ml PO BID 05/23/17 [History] Carvedilol [Coreg] 25 mg PO BID 05/23/17 [History] Docusate Sodium [Colace] 100 mg PO DAILY PRN 05/23/17 [History] Ferrous Sulfate [Iron] 325 mg PO TID 05/23/17 [History] HYDROmorphone [Dilaudid] 4 mg PO Q3H PRN 05/23/17 [History] Lidocaine/Prilocaine [EMLA Crm] 1 applic TOP ASDIRECTED PRN 05/23/17 [History] Multivitamin with Minerals [Multiple Vitamin] 1 tab PO DAILY 05/23/17 [History] NIFEdipine [Procardia Xl] 60 mg PO QPM 05/23/17 [History] Non-Formulary Medication [NF Drug] 1 pump IMPLANT ASDIRECTED 05/23/17 [History] Omeprazole Magnesium [Prilosec Otc] 20.6 mg PO DAILY PRN 05/23/17 [History] Saliva Substitution Combo No.2 [Caphosol] 1 spray BUCCAL DAILY PRN 05/23/17 [ History] Scopolamine [Transderm-Scop] 1.5 mg TOP Q72H PRN 05/23/17 [History] Vit D3/Folic Acid/B2/B6/B12 [Folgard Tablet] 1,200 mg PO DAILY 05/23/17 [History ] Past Medical History HEENT History: Reports: Impaired Vision, Sinusitis Gastrointestinal History: Reports: GERD 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: Musculoskeletal History: Reports: Back Pain, Chronic Neurological History: Reports: Neuropathy, Peripheral Psychiatric History: Reports: Anxiety Hematologic History: Reports: Anemia Oncologic (Cancer) History: Reports: Squamous Cell Carcinoma (treated with immunotherapy, not chemotherapy) - Infectious Disease History Infectious Disease History: Reports: C-Difficile - Past Surgical History Cardiovascular Surgical History: Reports: Other (See Below) (Right Port-A-Cath) Respiratory Surgical History: Reports: Other (See Below) (Bronchoscopy) GI Surgical History: Reports: Colonoscopy, EGD Female Surgical History: Reports: Section (x 1), Tubal Ligation, Ureteral Stent (right, x 4) Oncologic Surgical History: Reports: Other (See Below) (Dilaudid pain pump) Social & Family History - Family History Family Medical History: Noncontributory Cardiac: Reports: [place] Other Cardiac Family History: mother of [place] Endocrine/Metabolic: Reports: Diabetes, type II Other Endocrine/Metabolic Family History: mother and father Oncologic: Reports: Skin Other Oncologic Family History: father - Tobacco Use Smoking Status *Q: Former Smoker Packs/Tins Daily: 0.3 Month/Year Tobacco Last Used: Quit 2009 - Caffeine Use Caffeine Use: Reports: None - Alcohol Use Alcohol Use History: Yes Alcohol Use Frequency: Socially - Recreational Drug Use Recreational Drug Use: No - Living Situation & Occupation Living situation: Reports: , with Significant Other (Boyfriend) Occupation: Disabled ED ROS GENERAL - Review of Systems Review Of Systems: ROS reveals no pertinent complaints other than HPI. GI/Abdominal: Reports: Constipation (chronic) ED EXAM, GENERAL - Physical Exam Exam: See Below Exam Limited By: No Limitations General Appearance: Alert, WD/WN, Anxious, Other (Tearful) Eye Exam: Bilateral Eye: EOMI, Normal Inspection Ears: Normal External Exam, Hearing Grossly Normal Nose: Normal Inspection, No Blood Throat/Mouth: Normal Inspection, Normal Lips, Normal Voice, No Airway Compromise Head: Atraumatic, Normocephalic Neck: Normal Inspection, Full Range of Motion Respiratory/Chest: No Respiratory Distress, Lungs Clear, Normal Breath Sounds, No Accessory Muscle Use, Other (Port-A-Cath access site noted to the right chest ) Cardiovascular: Normal Peripheral Pulses, Regular Rate, Rhythm, No Edema, No Gallop, No JVD, No Murmur, No Rub Peripheral Pulses: 4+: Radial (L), Radial (R) GI/Abdominal: Normal Bowel Sounds, Soft, Non-Tender (including suprapubically), No Organomegaly, No Distention, No Abnormal Bruit, No Mass (Female) Exam: Deferred Rectal (Female) Exam: Deferred Back Exam: Normal Inspection, Full Range of Motion, CVA Tenderness (L), CVA Tenderness (R) Extremities: Normal Inspection, Normal Range of Motion, No Pedal Edema, Normal Capillary Refill Neurological: Alert, Oriented, Normal Cognition, No Motor/Sensory Deficits Psychiatric: Anxious, Tearful Skin Exam: Warm, Dry, Intact, Normal Color, No Rash Course - Vital Signs Last Recorded V/S: Last Vital Signs Temp 39.2 C H 02/08/18 17:17 Pulse 129 H 02/08/18 17:17 Resp 20 02/08/18 17:17 BP 120/78 02/08/18 17:17 Pulse Ox 98 02/08/18 17:17 - Orders/Labs/Meds Orders: Active Orders 24 hr Category Date Time Status CULTURE BLOOD [BC] Stat Lab 02/08/18 19:40 Results CULTURE BLOOD [BC] Stat Lab 02/08/18 19:49 Received CULTURE URINE [RM] Stat Lab 02/08/18 18:05 Results UA W/MICROSCOPIC [URIN] Stat Lab 02/08/18 18:05 Ordered Blood Culture x2 Reflex Set [OM.PC] Stat Oth 02/08/18 19:23 Ordered Labs: Laboratory Tests 02/08/18 02/08/18 Range/Units 18:05 19:49 WBC 7.43 (3.98-10.04) K/mm3 RBC 2.42 L (3.98-5.22) M/mm3 Hgb 6.7 L* (11.2-15.7) gm/L Hct 22.9 L (34.1-44.9) % MCV 94.6 (79.4-94.8) fl MCH 27.7 (25.6-32.2) pg MCHC 29.3 L (32.2-35.5) g/dl RDW Std Deviation 48.5 H (36.4-46.3) fL Plt Count 259 (182-369) K/mm3 MPV 8.1 L (9.4-12.3) fl Neutrophils % (Manual) 88 H (40-60) % Band Neutrophils % 0 (0-10) % Lymphocytes % (Manual) 9 L (20-40) % Atypical Lymphs % 0 % Monocytes % (Manual) 3 (2-10) % Eosinophils % (Manual) 0 L (0.7-5.8) % Basophils % (Manual) 0 L (0.1-1.2) Toxic Granulation 3+ marked Platelet Estimate Adequate Plt Morphology Comment Normal Hypochromasia 2+ moderate Anisocytosis 2+ moderate Microcytosis 2+ moderate RBC Morph Comment Not Reportable Urine Color Yellow (Yellow) Urine Appearance Clear (Clear) Urine pH 7.0 (5.0-8.0) Ur Specific Maceo 1.015 (1.005-1.030) Urine Protein 2+ H (Negative) Urine Glucose (UA) Negative (Negative) Urine Ketones Negative (Negative) Urine Occult Blood 1+ H (Negative) Urine Nitrite Negative (Negative) Urine Bilirubin Negative (Negative) Urine Urobilinogen 1.0 (0.2-1.0) Ur Leukocyte Esterase Trace H (Negative) Urine RBC 5-10 H (0-5) /hpf Urine WBC 10-20 H (0-5) /hpf Ur Epithelial Cells 0-5 (0-5) /hpf Urine Bacteria Rare (FEW) /hpf Urine Mucus Not seen (FEW) /hpf Meds: Medications Discontinued Medications Generic Name Dose Route Start Last Admin Trade Name Freq PRN Reason Stop Dose Admin Heparin Sodium (Porcine) 500 units 02/08/18 20:58 02/08/18 21:01 Heparin Lock Flush 100 Units/Ml FLUSH 02/08/18 20:59 500 units ONETIME ONE Administration Phenazopyridine HCl 95 mg 02/08/18 19:53 02/08/18 20:06 Urinary Pain Relief PO 02/08/18 19:54 95 mg ONETIME STA Administration - Re-Assessments/Exams Free Text/Narrative Re-Assessment/Exam: 02/08/18 19:24 The patient's urinalysis is a bit abnormal, but not consistent with a UTI. It is likely reflecting the presence of a ureteral stent. I will send a urine culture, but I don't see an indication to start the patient on an antibiotic to treat a UTI at this time. The cause of the patient's fever is not obvious. I will order 2 sets of blood cultures, one to be drawn from the patient's Port-A-Cath, the other peripherally. I don't know that a CBC would be of use, because the chemotherapy will perturb the values. I will page the patient's Oncologist, Dr. Bellamy, to seek his opinion. 02/08/18 19:[address] Bellamy at 19:44. He stated that the patient is on immunotherapy (Optiva), not chemotherapy, therefore her blood count should not be affected. He pointed out that the patient is chronically anemic, with a typical hemoglobin between 7 and 9. He recommends that we check a CBC, and if the patient has significant leukocytosis, that we treat her with Levaquin, and if her WBC count is not elevated, no antibiotics. He suggests we treat her urinary symptoms with Pyridium. He believes the patient has an appointment to follow-up with him in about a week. I will order a CBC and a dose of Pyridium. 02/08/18 20:48 The patient's WBC count is normal at 7.43, therefore she will not receive antibiotics. Her H/H is depressed at 6.7/22.9, but this was anticipated. I will discharge her home. Azo is available [id number]. The patient and her boyfriend state that she has an appointment to follow-up with Dr. Bellamy day after tomorrow, 02/10/2018. Departure - Departure Time of Disposition: 20:54 Disposition: Home, Self-Care 01 Condition: Fair Clinical Impression: Fever, Urinary urgency, Squamous cell carcinoma, Anemia - Discharge Information Instructions: Fever, Adult Referrals: Apryl Ontiveros PA-C [Primary Care Provider] - Peter Bellamy MD [Ordering Only Provider] - Forms: ED Department Discharge, ED Department Discharge Additional Instructions: You were seen in the emergency room for fever and urinary urgency. Workup in the ER included a urinalysis, a CBC, and 2 sets of blood cultures. Your urine returned slightly abnormal, more consistent with your having a ureteral stent, and not really consistent with a urinary tract infection. Nevertheless, a sample of urine was sent for culture. It is unclear if your prior urinary symptoms were due to a urinary tract infection or not, as the cultures from 01/20/2018 and 02/02/2018 returned as mixed brigido, consistent with contamination. Your case was discussed with your Oncologist, Dr. Bellamy, who recommended that we check your white blood cell count. If elevated, you were to receive antibiotics. If not, you were not to receive antibiotics. Your WBC count returned normal at 7.43, therefore you were not started on antibiotics. You have been started on the bladder pain medicine Pyridium. Pyridium is sold [id number] as Azo. You may safely take a total of 6 doses - either 2 tablets a day for 3 days, or 3 tablets a day for 2 days. Azo will turn your urine orange - this is normal. Stay well hydrated. Follow-up with Dr. Bellamy at your previously scheduled appointment this coming 02/10/2018. If any other problems, please do not hesitate to return to the ER. - My Orders Last 24 Hours: My Active Orders 02/08/18 18:05 CULTURE URINE [RM] Stat UA W/MICROSCOPIC [URIN] Stat 02/08/18 19:23 Blood Culture x2 Reflex Set [OM.PC] Stat 02/08/18 19:40 CULTURE BLOOD [BC] Stat 02/08/18 19:49 CULTURE BLOOD [BC] Stat - Assessment/Plan Last 24 Hours: My Active Orders 02/08/18 18:05 CULTURE URINE [RM] Stat UA W/MICROSCOPIC [URIN] Stat 02/08/18 19:23 Blood Culture x2 Reflex Set [OM.PC] Stat 02/08/18 19:40 CULTURE BLOOD [BC] Stat 02/08/18 19:49 CULTURE BLOOD [BC] Stat
[2018-02-08] MEDS ORDERED: Phenazopyridine 95 MG Tab PO STA (19:53)
== END 2018-02-08 21:10 | disposition home or self-care (01) ==
LOC: JD.ED 17:09
DX: C80.1 Malignant (primary) neoplasm, unspecified (principal); R35.0 Frequency of micturition; D64.9 Anemia, unspecified; Z88.1 Allergy status to other antibiotic agents; Z88.8 Allergy status to other drugs, medicaments and biological substances; Z79.899 Other long term (current) drug therapy; K21.9 Gastro-esophageal reflux disease without esophagitis; Z87.891 Personal history of nicotine dependence
CPT/HCPCS: 36415; 81001; 85007; 85027; 87040; 87086; 99284; A9270; J1642